=== PATIENT | female | born 1980 | race Caucasian/White ===

== ENCOUNTER 2021-05-29 11:37 | Emergency (ER) | payer BC ==
[2021-05-29 13:36] LABS: HEMOGLOBIN 16.4 gm/dl (12.3-15.3); RED BLOOD COUNT 4.92 M/UL (4.00-5.10); WHITE BLOOD COUNT 9.9 K/UL (4.5-11.0)
[2021-05-29 13:52] LABS: BUN/CREATININE RATIO 22 (0-10)
[2021-05-29] MEDS ORDERED: REGLAN10 MG PO (18:03)
== END 2021-05-29 18:29 | disposition home or self-care (01) ==
LOC: ER1 11:37
PROVIDERS: Family Medicine
DX: R11.15 Cyclical vomiting syndrome unrelated to migraine (principal)
CPT/HCPCS: 80053; 81001; 83605; 83690; 84703; 85025; 93005; 96374; 99284; J2405; Q9967